=== PATIENT | male | born 1960 | race Two or more races ===

== ENCOUNTER → 2018-05-29 | Day surgery (SDC) | payer OTHER ==
[2018-05-29] VITALS (8 sets, daily range): BP systolic 107–124; BP diastolic 76–89
[~2018-05-29] VITALS: Ht 152.4 cm; Wt 58.1 kg
[~2018-05-29] MED LIST: Atropine Inj 1mg/10ml Syr IV PRN; DiphenhydrAMINE 50mg/ml Inj IVP PRN; IBUPROFEN600 MG ORAL; LR 1000ml ONE; Lidocaine 1% MPF 10mg/ml 5ml ONE; Midazolam 2mg/2ml Inj IVP PRN; NAPROXEN500 M2 ORAL; NEURONTIN100 MG ORAL; OMEPRAZOLE40 M1 ORAL; Propofol 200mg/20ml IV ONE; fentaNYL 100 mcg/2 mL IV PRN
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
--- NOTE | 2018-05-29 09:54 | Pre-Procedure Note/Attestation ---
Pre-Procedure Note/Attestation Complete Prior to Procedure Planned Procedure: left Procedure Narrative: Examination of the upper GI. tract via endoscopy Indications for Procedure Pre-Operative Diagnosis: R/P Peptic Ulcer/gastritis Attestation I attest that I discussed the nature of the procedure; its benefits; risks and complications; and alternatives (and the risks and benefits of such alternatives ), prior to the procedure, with the patient (or the patient's legal marketing representative). I attest that, if there was a reasonable possibility of needing a blood transfusion, the patient (or the patient's legal marketing representative) was given the [facility] standardized written summary, pursuant to the Misael Elizabeth Blood Safety Act ([place] Health and Safety Code # 1645, as amended). I attest that I re-evaluated the patient just prior to the surgery and that there has been no change in the patient's H&P, except as documented below: Haseeb Davis MD May 29, 2018 09:54
--- NOTE | 2018-05-29 10:12 | Endoscopy Procedure Note ---
Endoscopy Procedure Note General Indication for Procedure: Abdominal pains/GERDs Procedures Performed: EGD - Hiatal Hernia otherwise completely normal Upper GI. Endoscopy. Biopsy was taken per random from gastric body. Specimen: yes Pt Tolerated Procedure Well: Yes Estimated Blood Loss: none Anesthesia Anesthesiologist: Dr. Dover Anesthesia: moderate sedation Medications Medication Given: see anesthesia record Inserted Devices Implant(s) used?: No Quality Quality of Bowel Preparation: Excellent Was there any complications?: No GI Core Measures 50 yrs or older w/o bx or poly: Not Applicable 10yrs. F/U not recommended: Not Applicable If not recommended, why?: Med reason:<3 yrs.: System Reason:<3 yrs.: Haseeb Davis MD May 29, 2018 10:12
--- NOTE | 2018-05-29 10:13 | Discharge Instructions ---
Discharge Instructions Discharge Instructions Follow up with: See the doctor after 2 weeks in the office, call first. For Congestive Heart Failure Reminder Report to your physician any weight gain of 5 pounds or more in one week. Haseeb Davis MD May 29, 2018 10:13
--- NOTE | 2018-05-29 16:45 | Operative Note - Dictated ---
DATE OF OPERATION: 05/29/2018 SURGEON: Haseeb Davis M.D. PROCEDURE: Esophagogastroduodenoscopy with biopsy. PREOPERATIVE DIAGNOSIS: Abdominal pain, heartburn, rule out peptic ulcer disease caused by NSAIDs. POSTOPERATIVE DIAGNOSIS: Hiatal hernia, otherwise completely normal upper GI endoscopy. Biopsy was done per random from gastric body. MEDICATION USED: Per Dr. Dover, anesthesiologist. INSTRUMENT: GIF Olympus upper GI video endoscope. DESCRIPTION OF PROCEDURE: The patient after arriving in endoscopy unit, was told about risks and benefits of the procedure which he accepted and signed informed consent. At this time, he was put on the left lateral decubitus position. After adequate IV sedation, the scope was gently passed through the cricopharyngeal area, was lodged into the upper esophagus, and gradually advanced towards gastroesophageal junction. The entire length of the esophagus looked normal, however, there was evidence of hiatal hernia, but no Jensen's. The scope was guided into the stomach. Gastric cavity was gradually distended with insufflation of air and the areas of the fundus, the body, and the antrum were examined which revealed no abnormalities such as inflammatory process, ulceration, polyps, tumors, bleeding, etc. At this point, one random biopsy from gastric body obtained and subsequently scope was passed through the pylorus. First and second portion of duodenum were also found to be completely normal. Finally, scope was pulled out and the procedure was terminated. The patient tolerated the procedure well and left the endoscopy room in good condition. Haseeb Davis M.D. DR: Gabriel JOB#: [id number] CC:
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
--- NOTE | 2018-06-04 12:00 | Immediate Post-Op Evaluation ---
Immediate Post-Op Evalulation Immediate Post-Op Evalulation Procedure: egd/bx Date of Evaluation: May 29, 2018 Time of Evaluation: 10:32 IV Fluids: 275ml lr Blood Products: none Estimated Blood Loss: neglgible Blood Pressure Systolic: 108 Blood Pressure Diastolic: 76 Pulse Rate: 76 Respiratory Rate: 18 O2 Sat by Pulse Oximetry: 98 Temperature (Fahrenheit): 97.2 Pain Score (1-10): 0 Nausea: No Vomiting: No Complications none Patient Status: awake, reacts, patent Hydration Status: adequate Drug: Shefali Lang MD Jun 04, 2018 12:00
[2018-06-04 12:01] VITALS: BP 110/77
--- NOTE | 2018-06-04 12:01 | 48 Hour Post Anesthesia Eval ---
Post Anesthesia Evaluation Procedure: egd/bx Date of Evaluation: May 29, 2018 Time of Evaluation: 10:34 Blood Pressure Systolic: 110 0: 77 Pulse Rate: 76 Respiratory Rate: 18 Temperature (Fahrenheit): 97.2 O2 Sat by Pulse Oximetry: 98 Airway: patent Nausea: No Vomiting: No Pain Intensity: 0 Hydration Status: adequate Cardiopulmonary Status: stable Mental Status/LOC: patient returned to baseline Post-Anesthesia Complications: none Follow-up care needed: N/A Shefali Timmons MD Jun 04, 2018 12:01
== END | disposition home or self-care (01) ==
LOC: GAS 08:15
DX: R10.9 Unspecified abdominal pain (principal); K44.9 Diaphragmatic hernia without obstruction or gangrene; R12 Heartburn; I10 Essential (primary) hypertension; Z82.49 Family history of ischemic heart disease and other diseases of the circulatory system; K21.9 Gastro-esophageal reflux disease without esophagitis
CPT/HCPCS: 43239; 82962; J2704; 94003; 94150